=== PATIENT | female | born 1965 | race Caucasian/White ===

== ENCOUNTER 2022-06-02 15:11 | Outpatient (CLI) | payer OTHER, SELFPAY ==
[2022-06-02 14:01] LABS: Albumin* 4.9 g/dL (3.3-5.0); Chloride* 105 mmol/L (96-114); Potassium* 4.7 mmol/L (3.6-5.1); Sodium* 142 mmol/L (135-149)
[2022-06-02 14:03] LABS: Cholesterol* 241 mg/dL (90-199); Creatinine* 0.9 mg/dL (0.5-1.5); Estimated Glomerular Filt Rate 75 ml/min
[2022-06-02 14:04] LABS: Alanine Aminotransferase* 28 U/L (4-35); Alkaline Phosphatase* 115 U/L (40-150); Aspartate Amino Transferase* 32 U/L (12-35); Bilirubin Total* 0.7 mg/dL (0.1-1.5); Blood Urea Nitrogen* 24 mg/dL (7-30); Calcium* 9.8 mg/dL (8.4-10.6); Carbon Dioxide* 22 mmol/L (20-32); Glucose* 95 mg/dL (60-115); Total Protein* 8.4 g/dL (6.0-8.3); Triglycerides* 233 mg/dL (40-149)
[2022-06-02 14:05] LABS: HDL Cholesterol* 56 mg/dL (>=50); LDL Cholesterol Calculated 138 mg/dL (<100)
[2022-06-02 14:47] LABS: Vitamin B12* 715 pg/mL (243-894)
== END 2022-06-02 15:12 | disposition home or self-care (01) ==
PROVIDERS: PCP Physician Assistant Medical; Visit Provider Physician Assistant Medical
DX: D50.9 Iron deficiency anemia, unspecified (principal); D51.0 Vitamin B12 deficiency anemia due to intrinsic factor deficiency; E03.9 Hypothyroidism, unspecified; E78.5 Hyperlipidemia, unspecified; I10 Essential (primary) hypertension
CPT/HCPCS: 80053; 80061; 82607; 84443

== ENCOUNTER 2023-06-05 14:16 | Outpatient (CLI) | payer OTHER, SELFPAY | END 2023-06-05 14:17 | disposition home or self-care (01) | PROVIDERS: PCP Physician Assistant Medical; Visit Provider Physician Assistant Medical | DX: I10 Essential (primary) hypertension (principal); E78.5 Hyperlipidemia, unspecified; E03.9 Hypothyroidism, unspecified; D51.0 Vitamin B12 deficiency anemia due to intrinsic factor deficiency | CPT/HCPCS: 80053; 80061; 82607; 84443 ==

== ENCOUNTER 2024-04-27 15:21 | Outpatient (CLI) | payer OTHER, SELFPAY | END 2024-04-27 15:22 | disposition home or self-care (01) | LOC: NFLDREF 04-28 08:11 | PROVIDERS: PCP Physician Assistant Medical; Referring Provider Physician Assistant Medical; Visit Provider Physician Assistant Medical | DX: Z00.00 Encounter for general adult medical examination without abnormal findings (principal); I10 Essential (primary) hypertension; E03.9 Hypothyroidism, unspecified; E78.2 Mixed hyperlipidemia; D51.0 Vitamin B12 deficiency anemia due to intrinsic factor deficiency; J45.909 Unspecified asthma, uncomplicated; J45.40 Moderate persistent asthma, uncomplicated | CPT/HCPCS: 80053; 80061; 82607; 84443 ==

== ENCOUNTER 2024-09-27 18:31 | Outpatient (CLI) | payer OTHER, SELFPAY ==
--- NOTE | 2024-09-27 18:40 | CRLHL7_ITS ---
For Patients: As a result of the Century Cures Act, medical imaging exams and procedure reports are released immediately into your electronic medical record. You may view this report before your referring provider. If you have questions, please contact your health care provider. INDICATION: 3D Screening Mammogram, asymptomatic 58F COMPARISON: 08/23/21, 03/01/19, 09/18/17 TECHNIQUE: CC and MLO views were obtained. These mammographic images have been obtained using full-field digital technique. These mammographic images were interpreted with the benefit of computer aided detection and tomosynthesis. BREAST COMPOSITION: The breasts are heterogeneously dense, which may obscure small masses. FINDINGS: No suspicious findings. ASSESSMENT: BI-RADS 1 Negative RECOMMENDATION: Annual screening mammogram. A lay language report of this examination will be provided to the patient. Dictated by: Kimani Harris MD @ 09/29/2024 09:58:29 (Electronically Signed)
== END 2024-09-27 18:32 | disposition home or self-care (01) ==
LOC: MAMMO 18:32
PROVIDERS: PCP Physician Assistant Medical; Visit Provider Physician Assistant Medical
DX: Z12.31 Encounter for screening mammogram for malignant neoplasm of breast (principal); R92.333 Mammographic heterogeneous density, bilateral breasts
CPT/HCPCS: 77063; 77067

== ENCOUNTER 2025-05-09 10:20 | Outpatient (CLI) | payer OTHER, SELFPAY | END 2025-05-09 10:21 | disposition home or self-care (01) | PROVIDERS: PCP Physician Assistant Medical; Visit Provider Physician Assistant Medical | DX: D51.0 Vitamin B12 deficiency anemia due to intrinsic factor deficiency (principal); E03.9 Hypothyroidism, unspecified; E78.2 Mixed hyperlipidemia; I10 Essential (primary) hypertension | CPT/HCPCS: 80053; 80061; 82607; 84443 ==